=== PATIENT | male | born 1970 ===

== ENCOUNTER 2017-03-12 17:58 | Emergency (ER) | payer OTHER ==
--- NOTE | 2017-03-12 18:43 | ED CLINICAL REPORT ---
Clinical Report - Physicians/Mid Levels [facility] [address] [place] [address] 03/12/2017 17:59 Patient: SARAVANAN VEGA Time Seen: 18:27; initial patient contact, initial documentation, patient care assumed. Arrived- By private vehicle. Historian- patient. History limited by poor cooperation. HISTORY OF PRESENT ILLNESS Chief Complaint: PENILE DISCHARGE. This started about 5 days ago and is still present. The problem is described as mild. The patient has had penile discharge. No discomfort with urination, urinary frequency, genital lesion, testicular pain or urgency of urination. No flank pain. Able to void. The patient has had unprotected intercourse with multiple partners. No homosexual activity. (says he had sex with different woman on and penis dc started on saturday, clearbranden dc, pt not really want to answer questions, was watching tv, and when I would ask qtns, he was very sharp and short with answers). Similar symptoms previously: Frequently, as bad. ( states he had std's prior, says he has had this many times and gets txed, when asked what type of std, he gave me annoyed look and replied, 'i don't know, chlamydia or something'). Recent medical care: Not recently seen/assessed. REVIEW OF SYSTEMS No fever, flank pain, hematuria or abdominal pain. All systems otherwise negative, except as recorded above. PAST HISTORY See nurses notes. ( PROBLEMS: Cellulitis. Rheumatoid Arthritis. --18:17 René Pak R.N. ADDITIONAL SURGERIES: no known surgeries.). SOCIAL HISTORY Never smoker. Heavy alcohol use. Patient is a longstanding alcoholic. No drug use. No recent travel. Is a local resident. FAMILY HISTORY Negative. ADDITIONAL NOTES The nursing notes have been reviewed with agreement regarding the chief complaint, HPI, ROS, PMH and patient medications and allergies. PHYSICAL EXAM Vital Signs: 03/12/2017 18:14 BP: 135/83. HR: 77. RR: 16. O2 saturation: 100%. Temp: 97.6 F. Pain level now: 5/10. Have been reviewed as normal and appear to be correct. Appearance: Alert. Oriented X3. No acute distress. (?etoh breath). ENT: Normal external inspection. Pharynx normal. Neck: Neck supple. CVS: Heart sounds normal. Respiratory: No respiratory distress. Breath sounds normal. Abdomen: Soft and nontender. Mildly obese. Back: Normal external inspection. : (deferred exam per pt's choice, wants tx and testing via urine only). Skin: Skin warm and dry. Normal skin color. No rash. Normal skin turgor. Extremities: Extremities exhibit normal ROM. No lower extremity edema. Neuro: Oriented X 3. No motor deficit. No sensory deficit. LABS, X-RAYS, AND EKG Laboratory Tests: UA-Culture if indicated: (MACARIO: 03/12/2017 18:40) ( MsgRcvd 03/12/2017 18:59) IP Test Result Flag Units (Reference) URINE COLOR YELLOW URINE APPEARANCE CLEAR URINE GLUCOSE NEGATIVE (NEGATIVE) URINE BILIRUBIN NEGATIVE (NEGATIVE) URINE KETONE NEGATIVE (NEGATIVE) URINE SPECIFIC GRAVITY 1.025 (1.010-1.030) URINE PH 6.0 (5.0-8.0) URINE PROTEIN NEGATIVE (NEGATIVE) URINE UROBILINOGEN 0.2 EU/dL (0.2-1.0) URINE NITRITE NEGATIVE (NEGATIVE) URINE BLOOD NEGATIVE (NEGATIVE) URINE LEUK ESTERASE NEGATIVE (NEGATIVE) . PROGRESS AND PROCEDURES Patient counseled in person regarding the patient's stable condition and diagnosis. Differential Diagnosis: Other possible considerations: uti, urethritis, prostatitis, chlamydia, gonorrhea, trich. Above considerations are based on history and physical exam. Differential diagnosis was discussed with patient. Disposition: Discharged home in good and improved condition (18:43). Condition: good and stable. CLINICAL IMPRESSION Exposure to STD: chlamydia. INSTRUCTIONS No sexual contact until symptoms resolve. Warnings: GENERAL WARNINGS: Return or contact your physician immediately if your condition worsens or changes unexpectedly, if not improving as expected, or if other problems arise. Specifically return if problem worsens. Prescription Medications: Zithromax 500 mg tablets: take 2 orally initially. Total course 1 day. No refills. Follow-up: Follow up with your doctor in about three days as needed. Call for an appointment. Summary of care provided to patient. Understanding of the discharge instructions verbalized by patient. (Electronically signed by Deja Cason A.R.N.P. 03/12/2017 19:07)
--- NOTE | 2017-03-12 18:43 | ED NURSING NOTES ---
Clinical Report - Nurses [facility] [address] [address] 03/12/2017 17:59 Patient: SARAVANAN VEGA TRIAGE Triage time 18:14. Chief Complaint: STD EXPOSURE. 18:15 03/12/17. 18:15 03/12/17. Alert. No acute distress. ( Pt that he thinks he has a STD. He has recently has had intercourse with someone that may have a STD. Pt denies discharge and feels funny in his gentiles.). BARBARA COMA SCORE: [place] Coma Scale: 15- eyes open spontaneously (4); best verbal response- oriented x 4 (5); best motor response- obeys commands (6). --18:21 René Pak R.N. 18:14 03/12/17. BP: 135/83. HR: 77. RR: 16. O2 saturation: 100% on room air. Temp: 97.6 F (oral). Pain level now: 5/10. --18:21 René Pak R.N. Weight: 99.7 kg stated. Height/Length: 66 inches Per Patient. BMI: 35.5. --18:15 René Pak R.N. Medications Enbrel Subcutaneous x1 weekly. --18:17 René Pak R.N. Medication/allergy information source: the patient. --18:21 René Pak R.N. Allergies No Known Drug Allergy. --18:17 René Pak R.N. History Arrived by private vehicle. Historian: patient. Accompanied by family. Primary physician (NONE). 18:15 03/12/17. ( Last week). 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 PAST MEDICAL HX: Immunizations: up-to-date. SOCIAL HX: Never smoker. Occasional alcohol use. Patient is a recovering alcoholic. No drug use. No infectious disease exposure. ABUSE ASSESSMENT: No report of abuse. FALL RISK ASSESSMENT: Fall risk assessment completed. No fall risk identified. NUTRITIONAL RISK ASSESSMENT: The nutritional risk assessment revealed no deficiencies. FUNCTIONAL ASSESSMENT: Functional assessment: no impairments noted. LEARNING NEEDS ASSESSMENT: The learning needs assessment revealed no barriers. SKIN INTEGRITY ASSESSMENT: Skin integrity risk assessment completed. No skin integrity risk identified. --18:21 René Pak R.N. PROBLEMS: Cellulitis. Rheumatoid Arthritis. --18:17 René Pak R.N. ADDITIONAL SURGERIES: no known surgeries. Assessment 18:15 03/12/17. --18:21 René Pak R.N. Interventions 18:15 03/12/17. 18:15 03/12/17. --18:21 René Pak R.N. PHYSICAL ASSESSMENT 18:17 03/12/17. Ambulatory to room. GENERAL / NEURO / PSYCH: Alert. Oriented X 4. Appears in no acute distress. RESPIRATORY: Respirations not labored. SKIN: Skin is warm and dry. --18:17 René Pak R.N. NURSING PROGRESS NOTES 18:18 03/12/17. The plan of care for this patient has been created. Head of bed elevated. Two patient identifiers checked. Call light placed in reach. Side rails up x 2. Bed placed in lowest position. Brakes of bed on. --18:18 René Pak R.N. 18:18 03/12/17. Patient ready for evaluation- chart flagged and notification provided. --18:18 René Pak R.N. 18:41 03/12/2017 Rocephin (CefTRIAXone Sodium) IM 250 mg given. Given in the right ventral gluteus. Allergies verified and confirmed 5 rights. --18:51 René Pak R.N. <<STRICKEN ENTRY-- 18:44 03/12/2017 Rocephin (CefTRIAXone Sodium) IM 250 mg given. Given in the right ventral gluteus. Allergies verified and confirmed 5 rights. --18:44 René Pak R.N. --END STRIKE>> Correction. --18:51 René Pak R.N. Reassessment after medication administered. He has had no adverse reaction. --18:51 René Pak R.N. DISPOSITION / DISCHARGE 18:49 03/12/17. The goals identified in the patient's plan of care were met. No learning barriers present. Discharge instructions provided and reviewed with the patient. Reviewed warnings. Reviewed medication(s). Treatments reviewed. Patient verbalized understanding. Written instructions provided in Greenlandic. The patient was discharged by the nurse practitioner. He was discharged home and accompanied by family. He left the Emergency Department ambulatory and via private vehicle. Family member driving. FALL RISK ASSESSMENT: Fall risk assessment completed. No fall risk identified. --18:50 René Pak R.N. 18:49 03/12/17. BP: 124/77. HR: 78. RR: 16. O2 saturation: 99% on room air. Temp: 98.1 F. Pain level now: 12/14. --18:50 René Pak R.N. 18:51 03/12/17. Departure time: 18:51. --18:51 René Pak R.N. Locked/Released at 03/12/2017 18:54 by René Pak R.N.
--- NOTE | 2017-03-12 18:43 | ED NURSING NOTES ---
Clinical Report - Nurses [facility] [place] [address] 03/12/2017 17:59 Patient: SARAVANAN VEGA TRIAGE Triage time 18:14. Chief Complaint: STD EXPOSURE. 18:15 03/12/17. 18:15 03/12/17. Alert. No acute distress. ( Pt that he thinks he has a STD. He has recently has had intercourse with someone that may have a STD. Pt denies discharge and feels funny in his gentiles.). BARBARA COMA SCORE: [place] Coma Scale: 15- eyes open spontaneously (4); best verbal response- oriented x 4 (5); best motor response- obeys commands (6). --18:21 René Pak R.N. 18:14 03/12/17. BP: 135/83. HR: 77. RR: 16. O2 saturation: 100% on room air. Temp: 97.6 F (oral). Pain level now: 5/10. --18:21 René Pak R.N. Weight: 99.7 kg stated. Height/Length: 66 inches Per Patient. BMI: 35.5. --18:15 René Pak R.N. Medications Enbrel Subcutaneous x1 weekly. --18:17 René Pak R.N. Medication/allergy information source: the patient. --18:21 René Pak R.N. Allergies No Known Drug Allergy. --18:17 René Pak R.N. History Arrived by private vehicle. Historian: patient. Accompanied by family. Primary physician (NONE). 18:15 03/12/17. ( Last week). 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 PAST MEDICAL HX: Immunizations: up-to-date. SOCIAL HX: Never smoker. Occasional alcohol use. Patient is a recovering alcoholic. No drug use. No infectious disease exposure. ABUSE ASSESSMENT: No report of abuse. FALL RISK ASSESSMENT: Fall risk assessment completed. No fall risk identified. NUTRITIONAL RISK ASSESSMENT: The nutritional risk assessment revealed no deficiencies. FUNCTIONAL ASSESSMENT: Functional assessment: no impairments noted. LEARNING NEEDS ASSESSMENT: The learning needs assessment revealed no barriers. SKIN INTEGRITY ASSESSMENT: Skin integrity risk assessment completed. No skin integrity risk identified. --18:21 René Pak R.N. PROBLEMS: Cellulitis. Rheumatoid Arthritis. --18:17 René Pak R.N. ADDITIONAL SURGERIES: no known surgeries. Assessment 18:15 03/12/17. --18:21 René Pak R.N. Interventions 18:15 03/12/17. 18:15 03/12/17. --18:21 René Pak R.N. PHYSICAL ASSESSMENT 18:17 03/12/17. Ambulatory to room. GENERAL / NEURO / PSYCH: Alert. Oriented X 4. Appears in no acute distress. RESPIRATORY: Respirations not labored. SKIN: Skin is warm and dry. --18:17 René Pak R.N. NURSING PROGRESS NOTES 18:18 03/12/17. The plan of care for this patient has been created. Head of bed elevated. Two patient identifiers checked. Call light placed in reach. Side rails up x 2. Bed placed in lowest position. Brakes of bed on. --18:18 René Pak R.N. 18:18 03/12/17. Patient ready for evaluation- chart flagged and notification provided. --18:18 René Pak R.N. 18:41 03/12/2017 Rocephin (CefTRIAXone Sodium) IM 250 mg given. Given in the right ventral gluteus. Allergies verified and confirmed 5 rights. --18:51 René Pak R.N. <<STRICKEN ENTRY-- 18:44 03/12/2017 Rocephin (CefTRIAXone Sodium) IM 250 mg given. Given in the right ventral gluteus. Allergies verified and confirmed 5 rights. --18:44 René Pak R.N. --END STRIKE>> Correction. --18:51 René Pak R.N. Reassessment after medication administered. He has had no adverse reaction. --18:51 René Pak R.N. DISPOSITION / DISCHARGE 18:49 03/12/17. The goals identified in the patient's plan of care were met. No learning barriers present. Discharge instructions provided and reviewed with the patient. Reviewed warnings. Reviewed medication(s). Treatments reviewed. Patient verbalized understanding. Written instructions provided in Setswana. The patient was discharged by the nurse practitioner. He was discharged home and accompanied by family. He left the Emergency Department ambulatory and via private vehicle. Family member driving. FALL RISK ASSESSMENT: Fall risk assessment completed. No fall risk identified. --18:50 René Pak R.N. 18:49 03/12/17. BP: 124/77. HR: 78. RR: 16. O2 saturation: 99% on room air. Temp: 98.1 F. Pain level now: 12/14. --18:50 René Pak R.N. 18:51 03/12/17. Departure time: 18:51. --18:51 René Pak R.N. Locked/Released at 03/12/2017 18:54 by René Pak R.N.
--- NOTE | 2017-03-12 18:44 | ED ORDER SUMMARY ---
..... Patient: SARAVANAN VEGA OrderSheet [facility] VisitID: [id number] [address] [place] [address] 46y, M Registration Date/Time: 03/12/2017 ORDER SHEET Weight: 99.7 kg (stated) Allergies: No Known Drug Allergy GENERAL ORDERS: GC/Chlamydia, Urine (Urine, Clean Catch) (dirty urine) Urgent (18:36 03/12/2017 HBivens A.R.N.P.) (Ack 18:46 KHoerner) (18:47 JBoardley R.N.) UA-Culture if indicated Urgent (18:37 03/12/2017 HBivens A.R.N.P.) (Ack 18:46 KHoerner) (18:47 JBoardley R.N.) MEDICATION ORDERS: Rocephin IM 250 mg (NOW) (18:37 03/12/2017 HBivens A.R.N.P.) (Ack 18:40 JBoardley R.N.) (18:44 JBoardley R.N.) IV FLUIDS: ORDER SHEET NOTES: [Electronically signed by René Pak R.N. (18:54 03/12/2017)] [Electronically signed by Deja CasonR.N.P. (19:07 03/12/2017)] [Electronically locked/signed by René Pak R.N. (18:54 03/12/2017)]
--- NOTE | 2017-03-12 18:44 | ED ORDER SUMMARY ---
..... Patient: SARAVANAN VEGA OrderSheet [facility] VisitID: [id number] [address] [place] [address] 46y, M Registration Date/Time: 03/12/2017 ORDER SHEET Weight: 99.7 kg (stated) Allergies: No Known Drug Allergy GENERAL ORDERS: GC/Chlamydia, Urine (Urine, Clean Catch) (dirty urine) Urgent (18:36 03/12/2017 HBivens A.R.N.P.) (Ack 18:46 KHoerner) (18:47 JBoardley R.N.) UA-Culture if indicated Urgent (18:37 03/12/2017 HBivens A.R.N.P.) (Ack 18:46 KHoerner) (18:47 JBoardley R.N.) MEDICATION ORDERS: Rocephin IM 250 mg (NOW) (18:37 03/12/2017 HBivens A.R.N.P.) (Ack 18:40 JBoardley R.N.) (18:44 JBoardley R.N.) IV FLUIDS: ORDER SHEET NOTES: [Electronically signed by René Pak R.N. (18:54 03/12/2017)] [Electronically signed by Deja CasonR.N.P. (19:07 03/12/2017)] [Electronically locked/signed by René Pak R.N. (18:54 03/12/2017)]
--- NOTE | 2017-03-12 19:07 | ED DISCHARGE INSTRUCTIONS ---
Patient: SARAVANAN VEGA General Instructions [facility] VisitID: [id number] [address] [place] [address] 46y, M Registration Date/Time: 03/12/2017 Exposure to STD: chlamydia. INSTRUCTIONS No sexual contact until symptoms resolve. Warnings: GENERAL WARNINGS: Return or contact your physician immediately if your condition worsens or changes unexpectedly, if not improving as expected, or if other problems arise. Specifically return if problem worsens. Prescription Medications: Zithromax 500 mg tablets: take 2 orally initially. Total course 1 day. No refills. Follow-up: Follow up with your doctor in about three days as needed. Call for an appointment. Summary of care provided to patient. Understanding of the discharge instructions verbalized by patient. ADDITIONAL INFORMATION STD, Suspected [R/O Gc & Chlamydia: Culture Only] Your symptoms suggest that you may have a STD (sexually transmitted disease). The most common bacteria that cause STD's are chlamydia and gonorrhea. Both are highly contagious and are passed by sexual contact with an infected partner. Symptoms begin within 1-3 weeks after exposure. There is usually a discharge from the penis or vagina and burning during urination. Many women with this infection will have only mild symptoms or no symptoms at all early in the disease. Culture tests have been taken. These will show if you have an infection with chlamydia or gonorrhea. This infection can be treated and cured with antibiotic medication. Home Care: 1) Avoid sexual activity until you know that your test result is negative. 2) If a culture was done and it is positive: Both you and your sexual partner need to be treated, even if your partner has no symptoms. Contact your doctor or go to an urgent care clinic or the Public Health Department to be examined and treated. Avoid sexual activity until both you and your partner have completed all antibiotic medicine and told that you are no longer contagious. Learn about safe sex practices and use these in the future. The safest sex is with a partner who has tested negative and only has sex with you. Condoms offer protection from spreading some sexually transmitted diseases including gonorrhea, chlamydia and HIV, but are not a guarantee. 3) Learn about safe sex practices and use these in the future. The safest sex is with a partner who has tested negative and only has sex with you. Condoms offer protection from spreading some sexually transmitted diseases including Gonorrhea, Chlamydia and HIV, but are not a guarantee. Follow Up with your doctor or as advised by our staff. You may call us in three days for the results of your culture, or as directed. If your culture test is positive and you are treated, another culture should be taken 4-6 weeks after treatment to be sure the infection has cleared. Follow up with your doctor or the Public Health Department for complete STD screening, including HIV testing. For more information about STDs, contact the National STD Hotline: . Get Prompt Medical Attention if any of the following occur: -- Fever over 100.4 F (38.0 C) -- New or increasing lower abdominal pain or back pain -- Unexpected vaginal bleeding -- Weakness, dizziness or fainting -- Repeated vomiting -- Inability to urinate due to pain -- Rash or joint pain -- Painful open sores on the penis or around the outer vagina -- Enlarged painful lymph nodes (lumps) in the groin -- Testicle pain or scrotal swelling in men Std (Urethritis) (Male, Adult: Gc Or Chlamydia) You have an infection in the urethra (the channel in the penis that passes urine). This is most often due to a bacterial infection with either "Chlamydia" or "Gonorrhea." This is a sexually transmitted disease (STD). It is highly contagious and passed by sexual contact with an infected partner. Symptoms begin within 1-3 weeks after exposure. There is usually a discharge from the penis and burning during urination. Many women with this infection will have only mild symptoms or no symptoms at all early in the disease. A culture test may be taken to confirm the diagnosis. Antibiotics may be started before the culture test returns. Home Care: Your sexual partner needs to be treated even if there are no symptoms. Your partner should contact their own doctor or go to an urgent care clinic or the Public Health Department to be examined and treated. Avoid sexual activity until both you and your partner have completed all antibiotic medicine, and you have been told by your doctor that you are no longer contagious. Take all antibiotic medicine as directed until it is finished. Otherwise, symptoms may recur. Learn about safe sex practices and use these in the future. The safest sex is with a partner who has tested negative and only has sex with you. Condoms offer protection from spreading some sexually transmitted diseases including Gonorrhea, Chlamydia and HIV, but are not a guarantee. Follow Up with your doctor or as advised by our staff. If a culture test was taken, you may call us in three days for the results, or as directed. Another culture test should be taken 4-6 weeks after treatment to be sure the infection has cleared. Follow up with your doctor or the Public Health Department for complete STD screening, including HIV testing. For more information about STD's, contact the National STD Hotline: . Get Prompt Medical Attention if any of the following occur: No improvement after three days of treatment Inability to urinate due to pain Rash or joint pain Painful sores on the penis Enlarged painful lymph nodes (lumps) in the groin Testicle pain or swelling of the scrotum Urethritis, Gonorrhea (Male, Treated) You have an infection in the urethra (the channel in the penis that passes urine). This is caused by a bacteria called "Gonorrhea." This infection is a sexually transmitted disease (STD). It is highly contagious and passed by sexual contact with an infected partner. Less often, it can infect the mouth, throat and anus. Symptoms begin within seven days after exposure. They usually include a milky discharge from the penis and burning during urination. Many women with this infection will have only mild symptoms or no symptoms at all early in the disease. This infection can be treated and cured. Treatment is with antibiotic medicine. Home Care: Your sexual partner needs to be treated even if there are no symptoms. Your partner should contact their own doctor or go to an urgent care clinic or the Public Health Department to be examined and treated. Avoid sexual activity until both you and your partner have completed all antibiotic medicine, and you have been told by your doctor that you are no longer contagious. Take all antibiotic medicine as directed until it is finished. Otherwise, symptoms may recur. Learn about safe sex practices and use these in the future. The safest sex is with a partner who has tested negative and only has sex with you. Condoms offer protection from spreading some sexually transmitted diseases including Gonorrhea, Chlamydia and HIV, but are not a guarantee. Follow Up with your doctor or as advised by our staff. If a culture test was taken, you may call us in three days for the results, or as directed. Another culture test should be taken 4-6 weeks after treatment to be sure the infection has cleared. Follow up with your doctor or the Public Health Department for complete STD screening, including HIV testing. For more information about STD's, contact the National STD Hotline: . Get Prompt Medical Attention if any of the following occur: No improvement after three days of treatment Inability to urinate due to pain Rash or joint pain Painful sores on the penis Enlarged painful lymph nodes (lumps) in the groin Testicle pain or swelling of the scrotum Urethritis, Chlamydia [Male, Treated] You have an infection in the urethra (the channel in the penis that carries urine). This is caused by a bacteria called "Chlamydia". This infection is a sexually transmitted disease. It is highly contagious and is passed by sexual contact with an infected partner. Symptoms begin within three weeks after exposure. There is usually a watery discharge from the penis and burning during urination. Many women with this infection will have only mild symptoms or no symptoms at all early in the disease. This infection can be treated and cured. Treatment is with antibiotic medicine. Home Care: 1) Your sexual partner needs to be treated even if there are no symptoms. Your partner should contact their own doctor or go to an urgent care clinic or the Public Health Department to be examined and treated. 2) Avoid sexual activity until both you and your partner have completed all antibiotic medicine, and you have been told by your doctor that you are no longer contagious. 3) Take all antibiotic medicine as directed until it is finished. Otherwise, symptoms may recur. 4) Learn about safe sex practices and use these in the future. The safest sex is with a partner who has tested negative and only has sex with you. Condoms offer protection from spreading some sexually transmitted diseases including Gonorrhea, Chlamydia and HIV, but are not a guarantee. Follow Up with your doctor or as advised by our staff. If a culture test was taken, you may call us in three days for the results, or as directed. Another culture test should be taken 4-6 weeks after treatment to be sure the infection has cleared. Follow up with your doctor or the Public Health Department for complete STD screening, including HIV testing. For more information about STD's, contact the National STD Hotline: . Get Prompt Medical Attention if any of the following occur: -- No improvement after three days of treatment -- Inability to urinate due to pain -- Rash or joint pain -- Painful sores on the penis -- Enlarged painful lymph nodes (lumps) in the groin -- Testicle pain or swelling of the scrotum Azithromycin Oral tablet What is this medicine? AZITHROMYCIN (az nati gunderson) is a macrolide antibiotic. It is used to treat or prevent certain kinds of bacterial infections. It will not work for colds, flu, or other viral infections. How should I use this medicine? Take this medicine by mouth with a full glass of water. Follow the directions on the prescription label. The tablets can be taken with food or on an empty stomach. If the medicine upsets your stomach, take it with food. Take your medicine at regular intervals. Do not take your medicine more often than directed. Take all of your medicine as directed even if you think your are better. Do not skip doses or stop your medicine early. Talk to your gold assayer regarding the use of this medicine in children. Special care may be needed. What side effects may I notice from receiving this medicine? Side effects that you should report to your doctor or health care giver as soon as possible: allergic reactions like skin rash, itching or hives, swelling of the face, lips, or tongue confusion, nightmares or hallucinations dark urine difficulty breathing hearing loss irregular heartbeat or chest pain pain or difficulty passing urine redness, blistering, peeling or loosening of the skin, including inside the mouth white patches or sores in the mouth yellowing of the eyes or skin Side effects that usually do not require medical attention (report to your doctor or health care giver if they continue or are bothersome): diarrhea dizziness, drowsiness headache stomach upset or vomiting tooth discoloration vaginal irritation What may interact with this medicine? Do not take this medicine with any of the following medications: lincomycin This medicine may also interact with the following medications: amiodarone antacids cyclosporine digoxin magnesium nelfinavir phenytoin warfarin What if I miss a dose? If you miss a dose, take it as soon as you can. If it is almost time for your next dose, take only that dose. Do not take double or extra doses. Where should I keep my medicine? Keep out of the reach of children. Store at room temperature between 15 and 30 degrees C (59 and 86 degrees F). Throw away any unused medicine after the expiration date. What should I tell my health care provider before I take this medicine? They need to know if you have any of these conditions: kidney disease liver disease irregular heartbeat or heart disease an unusual or allergic reaction to azithromycin, erythromycin, other macrolide antibiotics, foods, dyes, or preservatives or trying to get breast-feeding What should I watch for while using this medicine? Tell your doctor or health care giver if your symptoms do not improve. Do not treat diarrhea with over the counter products. Contact your doctor if you have diarrhea that lasts more than 2 days or if it is severe and watery. This medicine can make you more sensitive to the sun. Keep out of the sun. If you cannot avoid being in the sun, wear protective clothing and use sunscreen. Do not use sun lamps or tanning beds/booths. You have been given the following additional information: STD, Suspected (Culture Only) Urethritis, Male (Gc Vs. Chlam) Urethritis, Male (Gonorrhea) Chlamydia, Male Azithromycin Oral tablet (Electronically signed by Deja Cason A.R.N.P. 03/12/2017 19:07)
--- NOTE | 2017-03-12 19:07 | ED DISCHARGE INSTRUCTIONS ---
Patient: SARAVANAN VEGA General Instructions [facility] VisitID: [id number] [address] [place] [address] 46y, M Registration Date/Time: 03/12/2017 Exposure to STD: chlamydia. INSTRUCTIONS No sexual contact until symptoms resolve. Warnings: GENERAL WARNINGS: Return or contact your physician immediately if your condition worsens or changes unexpectedly, if not improving as expected, or if other problems arise. Specifically return if problem worsens. Prescription Medications: Zithromax 500 mg tablets: take 2 orally initially. Total course 1 day. No refills. Follow-up: Follow up with your doctor in about three days as needed. Call for an appointment. Summary of care provided to patient. Understanding of the discharge instructions verbalized by patient. ADDITIONAL INFORMATION STD, Suspected [R/O Gc & Chlamydia: Culture Only] Your symptoms suggest that you may have a STD (sexually transmitted disease). The most common bacteria that cause STD's are chlamydia and gonorrhea. Both are highly contagious and are passed by sexual contact with an infected partner. Symptoms begin within 1-3 weeks after exposure. There is usually a discharge from the penis or vagina and burning during urination. Many women with this infection will have only mild symptoms or no symptoms at all early in the disease. Culture tests have been taken. These will show if you have an infection with chlamydia or gonorrhea. This infection can be treated and cured with antibiotic medication. Home Care: 1) Avoid sexual activity until you know that your test result is negative. 2) If a culture was done and it is positive: Both you and your sexual partner need to be treated, even if your partner has no symptoms. Contact your doctor or go to an urgent care clinic or the Public Health Department to be examined and treated. Avoid sexual activity until both you and your partner have completed all antibiotic medicine and told that you are no longer contagious. Learn about safe sex practices and use these in the future. The safest sex is with a partner who has tested negative and only has sex with you. Condoms offer protection from spreading some sexually transmitted diseases including gonorrhea, chlamydia and HIV, but are not a guarantee. 3) Learn about safe sex practices and use these in the future. The safest sex is with a partner who has tested negative and only has sex with you. Condoms offer protection from spreading some sexually transmitted diseases including Gonorrhea, Chlamydia and HIV, but are not a guarantee. Follow Up with your doctor or as advised by our staff. You may call us in three days for the results of your culture, or as directed. If your culture test is positive and you are treated, another culture should be taken 4-6 weeks after treatment to be sure the infection has cleared. Follow up with your doctor or the Public Health Department for complete STD screening, including HIV testing. For more information about STDs, contact the National STD Hotline: . Get Prompt Medical Attention if any of the following occur: -- Fever over 100.4 F (38.0 C) -- New or increasing lower abdominal pain or back pain -- Unexpected vaginal bleeding -- Weakness, dizziness or fainting -- Repeated vomiting -- Inability to urinate due to pain -- Rash or joint pain -- Painful open sores on the penis or around the outer vagina -- Enlarged painful lymph nodes (lumps) in the groin -- Testicle pain or scrotal swelling in men Std (Urethritis) (Male, Adult: Gc Or Chlamydia) You have an infection in the urethra (the channel in the penis that passes urine). This is most often due to a bacterial infection with either "Chlamydia" or "Gonorrhea." This is a sexually transmitted disease (STD). It is highly contagious and passed by sexual contact with an infected partner. Symptoms begin within 1-3 weeks after exposure. There is usually a discharge from the penis and burning during urination. Many women with this infection will have only mild symptoms or no symptoms at all early in the disease. A culture test may be taken to confirm the diagnosis. Antibiotics may be started before the culture test returns. Home Care: Your sexual partner needs to be treated even if there are no symptoms. Your partner should contact their own doctor or go to an urgent care clinic or the Public Health Department to be examined and treated. Avoid sexual activity until both you and your partner have completed all antibiotic medicine, and you have been told by your doctor that you are no longer contagious. Take all antibiotic medicine as directed until it is finished. Otherwise, symptoms may recur. Learn about safe sex practices and use these in the future. The safest sex is with a partner who has tested negative and only has sex with you. Condoms offer protection from spreading some sexually transmitted diseases including Gonorrhea, Chlamydia and HIV, but are not a guarantee. Follow Up with your doctor or as advised by our staff. If a culture test was taken, you may call us in three days for the results, or as directed. Another culture test should be taken 4-6 weeks after treatment to be sure the infection has cleared. Follow up with your doctor or the Public Health Department for complete STD screening, including HIV testing. For more information about STD's, contact the National STD Hotline: . Get Prompt Medical Attention if any of the following occur: No improvement after three days of treatment Inability to urinate due to pain Rash or joint pain Painful sores on the penis Enlarged painful lymph nodes (lumps) in the groin Testicle pain or swelling of the scrotum Urethritis, Gonorrhea (Male, Treated) You have an infection in the urethra (the channel in the penis that passes urine). This is caused by a bacteria called "Gonorrhea." This infection is a sexually transmitted disease (STD). It is highly contagious and passed by sexual contact with an infected partner. Less often, it can infect the mouth, throat and anus. Symptoms begin within seven days after exposure. They usually include a milky discharge from the penis and burning during urination. Many women with this infection will have only mild symptoms or no symptoms at all early in the disease. This infection can be treated and cured. Treatment is with antibiotic medicine. Home Care: Your sexual partner needs to be treated even if there are no symptoms. Your partner should contact their own doctor or go to an urgent care clinic or the Public Health Department to be examined and treated. Avoid sexual activity until both you and your partner have completed all antibiotic medicine, and you have been told by your doctor that you are no longer contagious. Take all antibiotic medicine as directed until it is finished. Otherwise, symptoms may recur. Learn about safe sex practices and use these in the future. The safest sex is with a partner who has tested negative and only has sex with you. Condoms offer protection from spreading some sexually transmitted diseases including Gonorrhea, Chlamydia and HIV, but are not a guarantee. Follow Up with your doctor or as advised by our staff. If a culture test was taken, you may call us in three days for the results, or as directed. Another culture test should be taken 4-6 weeks after treatment to be sure the infection has cleared. Follow up with your doctor or the Public Health Department for complete STD screening, including HIV testing. For more information about STD's, contact the National STD Hotline: . Get Prompt Medical Attention if any of the following occur: No improvement after three days of treatment Inability to urinate due to pain Rash or joint pain Painful sores on the penis Enlarged painful lymph nodes (lumps) in the groin Testicle pain or swelling of the scrotum Urethritis, Chlamydia [Male, Treated] You have an infection in the urethra (the channel in the penis that carries urine). This is caused by a bacteria called "Chlamydia". This infection is a sexually transmitted disease. It is highly contagious and is passed by sexual contact with an infected partner. Symptoms begin within three weeks after exposure. There is usually a watery discharge from the penis and burning during urination. Many women with this infection will have only mild symptoms or no symptoms at all early in the disease. This infection can be treated and cured. Treatment is with antibiotic medicine. Home Care: 1) Your sexual partner needs to be treated even if there are no symptoms. Your partner should contact their own doctor or go to an urgent care clinic or the Public Health Department to be examined and treated. 2) Avoid sexual activity until both you and your partner have completed all antibiotic medicine, and you have been told by your doctor that you are no longer contagious. 3) Take all antibiotic medicine as directed until it is finished. Otherwise, symptoms may recur. 4) Learn about safe sex practices and use these in the future. The safest sex is with a partner who has tested negative and only has sex with you. Condoms offer protection from spreading some sexually transmitted diseases including Gonorrhea, Chlamydia and HIV, but are not a guarantee. Follow Up with your doctor or as advised by our staff. If a culture test was taken, you may call us in three days for the results, or as directed. Another culture test should be taken 4-6 weeks after treatment to be sure the infection has cleared. Follow up with your doctor or the Public Health Department for complete STD screening, including HIV testing. For more information about STD's, contact the National STD Hotline: . Get Prompt Medical Attention if any of the following occur: -- No improvement after three days of treatment -- Inability to urinate due to pain -- Rash or joint pain -- Painful sores on the penis -- Enlarged painful lymph nodes (lumps) in the groin -- Testicle pain or swelling of the scrotum Azithromycin Oral tablet What is this medicine? AZITHROMYCIN (az nati gunderson) is a macrolide antibiotic. It is used to treat or prevent certain kinds of bacterial infections. It will not work for colds, flu, or other viral infections. How should I use this medicine? Take this medicine by mouth with a full glass of water. Follow the directions on the prescription label. The tablets can be taken with food or on an empty stomach. If the medicine upsets your stomach, take it with food. Take your medicine at regular intervals. Do not take your medicine more often than directed. Take all of your medicine as directed even if you think your are better. Do not skip doses or stop your medicine early. Talk to your hospice aide regarding the use of this medicine in children. Special care may be needed. What side effects may I notice from receiving this medicine? Side effects that you should report to your doctor or health healthcare management consultant as soon as possible: allergic reactions like skin rash, itching or hives, swelling of the face, lips, or tongue confusion, nightmares or hallucinations dark urine difficulty breathing hearing loss irregular heartbeat or chest pain pain or difficulty passing urine redness, blistering, peeling or loosening of the skin, including inside the mouth white patches or sores in the mouth yellowing of the eyes or skin Side effects that usually do not require medical attention (report to your doctor or health healthcare management consultant if they continue or are bothersome): diarrhea dizziness, drowsiness headache stomach upset or vomiting tooth discoloration vaginal irritation What may interact with this medicine? Do not take this medicine with any of the following medications: lincomycin This medicine may also interact with the following medications: amiodarone antacids cyclosporine digoxin magnesium nelfinavir phenytoin warfarin What if I miss a dose? If you miss a dose, take it as soon as you can. If it is almost time for your next dose, take only that dose. Do not take double or extra doses. Where should I keep my medicine? Keep out of the reach of children. Store at room temperature between 15 and 30 degrees C (59 and 86 degrees F). Throw away any unused medicine after the expiration date. What should I tell my health care provider before I take this medicine? They need to know if you have any of these conditions: kidney disease liver disease irregular heartbeat or heart disease an unusual or allergic reaction to azithromycin, erythromycin, other macrolide antibiotics, foods, dyes, or preservatives or trying to get breast-feeding What should I watch for while using this medicine? Tell your doctor or health healthcare management consultant if your symptoms do not improve. Do not treat diarrhea with over the counter products. Contact your doctor if you have diarrhea that lasts more than 2 days or if it is severe and watery. This medicine can make you more sensitive to the sun. Keep out of the sun. If you cannot avoid being in the sun, wear protective clothing and use sunscreen. Do not use sun lamps or tanning beds/booths. You have been given the following additional information: STD, Suspected (Culture Only) Urethritis, Male (Gc Vs. Chlam) Urethritis, Male (Gonorrhea) Chlamydia, Male Azithromycin Oral tablet (Electronically signed by Deja Cason A.R.N.P. 03/12/2017 19:07)
--- NOTE | 2017-03-12 19:08 | ED MED RECONCILIATION SUMMARY ---
Patient: SARAVANAN VEGA Medication Reconciliation Report [facility] VisitID: [id number] [address] [place] [address] 46y, M Registration Date/Time: 03/12/2017 Weight: 99.7 kg Height/Length: 66 in. BMI: 35.5 ALLERGIES: No Known Drug Allergy The patient's Home Medications are listed below: THE FOLLOWING MEDICATIONS NEED TO BE RECONCILED: Enbrel Subcutaneous x1 weekly The source(s) of the original Home Medication information: patient The following Medications were given to the patient in the Emergency Department: Rocephin [IM] IM 250 mg, administered: 03/12/2017 6:41:00 PM The following Medications were prescribed to the patient: Zithromax 500 mg tablets: take 2 orally initially. Total course 1 day. No refills. -- Deja Cason A.R.N.P.
--- NOTE | 2017-03-12 19:08 | ED MAR SUMMARY ---
..... Medication Administration Record [facility] [address] [place] [address] Patient: SARAVANAN VEGA Visit ID: [id number] 46y, M Weight: 99.7 kg Height/Length: 66 in BMI: 35.5 ALLERGIES: No Known Drug Allergy Given 18:41 03/12/2017 René Pak R.N. Medication Administered: ROCEPHIN [IM] (CEFTRIAXONE SODIUM), Dose: 250 mg IM. Medication Ordered: Rocephin IM 250 mg (NOW).
--- NOTE | 2017-03-12 19:08 | ED MAR SUMMARY ---
..... Medication Administration Record [facility] [address] [place] [address] Patient: SARAVANAN VEGA Visit ID: [id number] 46y, M Weight: 99.7 kg Height/Length: 66 in BMI: 35.5 ALLERGIES: No Known Drug Allergy Given 18:41 03/12/2017 René Pak R.N. Medication Administered: ROCEPHIN [IM] (CEFTRIAXONE SODIUM), Dose: 250 mg IM. Medication Ordered: Rocephin IM 250 mg (NOW).
--- NOTE | 2017-03-12 19:08 | ED MED RECONCILIATION SUMMARY ---
Patient: SARAVANAN VEGA Medication Reconciliation Report [facility] VisitID: [id number] [address] [place] [address] 46y, M Registration Date/Time: 03/12/2017 Weight: 99.7 kg Height/Length: 66 in. BMI: 35.5 ALLERGIES: No Known Drug Allergy The patient's Home Medications are listed below: THE FOLLOWING MEDICATIONS NEED TO BE RECONCILED: Enbrel Subcutaneous x1 weekly The source(s) of the original Home Medication information: patient The following Medications were given to the patient in the Emergency Department: Rocephin [IM] IM 250 mg, administered: 03/12/2017 6:41:00 PM The following Medications were prescribed to the patient: Zithromax 500 mg tablets: take 2 orally initially. Total course 1 day. No refills. -- Deja Cason A.R.N.P.
== END 2017-03-12 18:51 | disposition home or self-care (01) ==
LOC: ED SRH 17:58
DX: Z20.2 Contact with and (suspected) exposure to infections with a predominantly sexual mode of transmission (principal); R36.9 Urethral discharge, unspecified; M06.9 Rheumatoid arthritis, unspecified
CPT/HCPCS: 90004; 91227; 91228